=== PATIENT | female | born 1970 | race Caucasian/White ===

== ENCOUNTER 2018-08-31 14:14 | Emergency (ER) | payer MEDICAID | END 2018-08-31 14:58 | disposition left against medical advice (07) | LOC: D.ER 14:14 | DX: M54.5 Low back pain (principal) ==

== ENCOUNTER 2018-09-04 15:13 | Emergency (ER) | payer MEDICAID ==
[~2018-09-04] VITALS: Ht 170.2 cm; Wt 97.3 kg
[2018-09-04 15:23] VITALS: Ht 170.2 cm; Wt 97.3 kg
[2018-09-04] MEDS ORDERED: TOPROL XL50 MG PO (15:25)
[2018-09-04] MEDS ORDERED: [UNRECOGNIZED DRUG - REMARK] (15:25)
[2018-09-04] MEDS ORDERED: LIPITOR20 MG PO (15:25)
[2018-09-04] MEDS ORDERED: NEURONTIN600 MG PO (15:25)
[2018-09-04] MEDS ORDERED: LISINOPRIL10 MG PO (15:25)
[2018-09-04 15:51] LABS: APPEARANCE CLEAR (CLEAR); BILIRUBIN NEGATIVE (NEGATIVE); COLOR YELLOW (YELLOW); EPITHELIAL CELLS 0-5 /hpf (0-5); GLUCOSE 50 mg/dL (NEGATIVE); KETONE NEGATIVE (NEGATIVE); NITRITE NEGATIVE (NEGATIVE); PROTEIN NEGATIVE (NEGATIVE); RED CELLS - URINE NONE SEEN /hpf (0-5); WHITE CELLS - URINE OCC /hpf (0-5)
[2018-09-04 17:45] VITALS: BP 119/42
[2018-09-04] MEDS ORDERED: ULTRAM50 MG PO (17:49)
[2018-09-04] MEDS ORDERED: CYCLOBENZAPRINE10 MG PO (17:49)
== END 2018-09-04 18:00 | disposition home or self-care (01) ==
LOC: D.ER 15:13
PROVIDERS: Emergency Medicine
DX: M54.5 Low back pain (principal); M25.551 Pain in right hip